=== PATIENT | female | born 1950 | race Caucasian/White ===

== ENCOUNTER → 2020-06-07 12:28 | Outpatient (CLI) | payer MEDICARE, SELFPAY ==
--- NOTE | ~2020-06-07 | US_ITS ---
EXAMINATION: US renal BI DATE: 06/07/2020 13:02 INDICATION: Chronic kidney disease stage III. TECHNIQUE: Multiple ultrasound grayscale images of the kidneys were obtained. COMPARISON: None. FINDINGS: The right kidney measures 10.3 x 4.8 x 4.2 cm. The left kidney measures 10.4 x 6.0 x 5.8 cm. The kidn eys demonstrate normal parenchymal echogenicity. There is moderate right and mild left hydronephrosis . There is a cystic mass in the abdomen measuring at least 26 cm. The bladder is not well visualized. IMPRESSION: 1. Moderate right hydronephrosis and mild left hydronephrosis. 2. Cystic mass in the abdomen measuring at least 26 cm suspicious for neoplasm. CT abdomen and pelvis is recommended. I called this result to Dr. Lobo. Reviewed, dictated and finalized at location B. T MAKER
== END ==
PROVIDERS: PCP Family Medicine; Visit Provider Internal Medicine Nephrology
DX: N17.8 Other acute kidney failure (principal); N18.31 Chronic kidney disease, stage 3a; I12.9 Hypertensive chronic kidney disease with stage 1 through stage 4 chronic kidney disease, or unspecified chronic kidney disease; R93.89 Abnormal findings on diagnostic imaging of other specified body structures
CPT/HCPCS: 76775

== ENCOUNTER 2020-06-10 14:35 | Outpatient (CLI) | payer MEDICARE, SELFPAY ==
--- NOTE | ~2020-06-10 | CT_ITS ---
EXAMINATION: CT abdomen pelvis wo con DATE: 06/10/2020 15:03 INDICATION: Hydronephrosis TECHNIQUE: Computed tomography (CT) of the abdomen and pelvis was performed without intravenous contr ast. Automated exposure control and iterative reconstruction technique were employed. Exam dose: 101 9.26 mGy-cm total exam DLP. COMPARISON: 06/07/2020 renal ultrasound examination FINDINGS: There is a huge complex largely cystic mass extending from the pelvic floor posterior to th e urinary bladder into the upper abdomen, measuring up to 33.7 cm approximate maximal height, up to 1 7 cm anteroposterior and 23.6 cm maximal transverse dimension. There is an irregular soft tissue mura l nodule along the left superolateral aspect of the mass, with some additional areas of soft tissue t hickening of the wall. Differential diagnosis includes benign or very possibly malignant ovarian neop lasm. Normal heart size. No pericardial or pleural effusion. The lung bases are clear of infiltrate or cons olidation. The liver, gallbladder, bile ducts, spleen, pancreas, and adrenal glands are unremarkable. There is moderate right and mild left hydronephrosis and hydroureter, likely secondary to compression from the large previously reported mass. No renal mass lesion or urinary tract calculus is evident. The urinary bladder is unremarkable other than the compression by the pelvic mass. Normal caliber of the abdominal aorta. No intraperitoneal or retroperitoneal or pelvic adenopathy is evident. No bowel obstruction, bowel wall thickening, pneumatosis or intraperitoneal free air is evident. There is severe degenerative disc disease and approximately 3.4 mm retrolisthesis at L1-2. There is severe degenerative disc disease at L5-S1, mild to moderate degenerative disc disease at the remaining lumbar interspaces. IMPRESSION: Huge complex cystic mass extending from the pelvic floor to the upper abdomen; ovarian m alignancy must be excluded. Gynecologic consult is recommended. Bilateral hydronephrosis secondary to the large previously reported mass lesion Reviewed, dictated and finalized at Location A. Reviewed, dictated and finalized at location A. PROMENADE TILE SETTER IMPRESSION: Huge complex cystic mass extending from the pelvic floor to the up per abdomen; ovarian malignancy must be excluded. Gynecologic consult is recomm ended. Bilateral hydronephrosis secondary to the large previously reported mass lesion
== END 2020-06-10 14:36 | disposition home or self-care (01) ==
PROVIDERS: PCP Family Medicine; Visit Provider Internal Medicine Nephrology
DX: N13.30 Unspecified hydronephrosis (principal); R19.00 Intra-abdominal and pelvic swelling, mass and lump, unspecified site
CPT/HCPCS: 74176

== ENCOUNTER 2022-05-30 13:46 | Outpatient (CLI) | payer MEDICARE, SELFPAY ==
--- NOTE | ~2022-05-30 | DEXA_ITS ---
Bone Density Report Name: RAMILA LECHUGA Age: 72 Sex: Female Ethnicity: White Date of : 1950 Indication: postmenopausal; screening for osteoporosis; height loss; cancer; hysterectomy; Referring Provider: YUDY ANDERSON Study: Bone densitometry was performed. Exam Date: May 30, 2022 Accession number: [id number] Bone Density: Region BMD T-score Z-score Classification AP Spine(L1, L2, L3) 0.817 -1.8 0.4 Osteopenia Femoral Neck (Left) 0.699 -1.4 0.6 Osteopenia Total Hip (Left) 0.865 -0.6 1.0 Normal Femoral Neck (Right) 0.680 -1.5 0.4 Osteopenia Total Hip (Right) 0.842 -0.8 0.8 Normal Total Hip Mean 0.854 -0.7 0.9 Normal World Health Organization criteria for BMD impression classify patients as: Normal (T-score at or above -1.0), Osteopenia (T-score between -1.0 and -2.5), or Osteoporosis (T-score at or below -2.5). 10-year Fracture Risk(1): Major Osteoporotic Fracture 9.8% Hip Fracture 1.6% Reported Risk Factors: [place] (), Neck BMD=0.680, BMI=35.8 (1) FRAX(R) Version 3.08. Fracture probability calculated for an untreated patient. Fracture probability may be lower if the patient has received treatment. Clinical Information Provided by Patient: Has used the following medications: Vitamin D, Calcium Has the following medical conditions: Cancer, Hysterectomy, Endometrial cancer Patient maximum height was 67 Drinks caffeinated beverages Onset of menses at age 12 Impression: The patient has low bone mass, based on the Total Spine T-score. The patient has an estimated ten-year risk of hip fracture of 1.6% and an estimated ten-year risk of major fracture of 9.8%, based on the WHO FRAX algorithm. Discussion: BONE DENSITY IS LOW AT ONE OR MORE SKELETAL SITES. This patient's lowest T-score is low at one or more skeletal sites. It meets the World Health Organization's (WHO) criteria for ?low bone mass? (T-score between -1.0 and -2.5). The patient's 10-year risk of fracture as calculated by FRAX is less than the threshold where pharmacological therapy is recommended by the National Osteoporosis Foundation (NOF). However, all treatment decisions require clinical judgment and consideration of individual patient factors, including patient preferences, comorbidities, previous drug use, risk factors not captured in the FRAX model (e.g., frailty, falls, vitamin D deficiency, increased bone turnover, interval significant decline in bone density) and possible under or overestimation of fracture risk by FRAX. The patient should follow a healthful lifestyle (good nutrition with adequate calcium and vitamin D, and appropriate weight-bearing exercise). Follow-Up: Consider repeating this study in 2 to 3 years to reassess this patient's status, or sooner if there is some new clinic
== END 2022-05-30 13:47 | disposition home or self-care (01) ==
PROVIDERS: PCP Family Medicine; Visit Provider Physician Assistant
DX: Z78.0 Asymptomatic menopausal state (principal); M85.88 Other specified disorders of bone density and structure, other site; M85.852 Other specified disorders of bone density and structure, left thigh; M85.851 Other specified disorders of bone density and structure, right thigh
CPT/HCPCS: 77080

== ENCOUNTER 2025-02-16 12:37 | Outpatient (CLI) | payer MEDICARE, SELFPAY ==
--- NOTE | ~2025-02-16 | DEXA_ITS ---
Bone Density Report Name: RAMILA LECHUGA Age: 75 Sex: Female Ethnicity: White Date of : 1950 Indication: osteopenia; height loss; cancer; hysterectomy; Referring Provider: YURIY BROWN Study: Bone densitometry was performed. Exam Date: February 16, 2025 Accession number: [id number] Bone Density: Region BMD T-score Z-score Classification AP Spine(L1, L2, L3) 0.751 -2.4 -0.1 Osteopenia Femoral Neck (Left) 0.679 -1.5 0.5 Osteopenia Total Hip (Left) 0.879 -0.5 1.3 Normal Femoral Neck (Right) 0.690 -1.4 0.7 Osteopenia Total Hip (Right) 0.853 -0.7 1.1 Normal Total Hip Mean 0.866 -0.6 1.2 Normal World Health Organization criteria for BMD impression classify patients as: Normal (T-score at or above -1.0), Osteopenia (T-score between -1.0 and -2.5), or Osteoporosis (T-score at or below -2.5). 10-year Fracture Risk(1): Major Osteoporotic Fracture 10% Hip Fracture 1.9% Reported Risk Factors: [place] (), Neck BMD=0.679, BMI=37.3 (1) FRAX(R) Version 3.08. Fracture probability calculated for an untreated patient. Fracture probability may be lower if the patient has received treatment. Previous Exams: Region Exam Age BMD T-score BMD Change BMD Change Date g/cm2 vs Baseline vs Previous AP Spine (L1-L3) 02/16/2025 75 0.751 -2.4 -0.065 (-8.0%) -0.065 (-8.0%) 05/30/2022 72 0.817 -1.8 Total Hip(Left) 02/16/2025 75 0.879 -0.5 0.014 (1.6%) 0.014 (1.6%) 05/30/2022 72 0.865 -0.6 Total Hip(Right) 02/16/2025 75 0.853 -0.7 0.010 (1.2%) 0.010 (1.2%) 05/30/2022 72 0.842 -0.8 *Denotes significance at 95% confidence level, LSC for AP Spine = 0.022 g/cm2, LSC for Total Hip = 0.027 g/cm2 Clinical Information Provided by Patient: Has used the following medications: Vitamin D, Calcium Has the following medical conditions: Cancer, Hysterectomy, Endometrial cancer Patient maximum height was 67 Drinks caffeinated beverages Onset of menses at age 12 Number of children 0 Impression: The patient has low bone mass, based on the Total Spine T-score. The patient has an estimated ten-year risk of hip fracture of 1.9% and an estimated ten-year risk of major fracture of 10%, based on the WHO FRAX algorithm. The BMD for the AP Spine (L1-L3) decreased, changing by -8.0% since the last DXA exam. Discussion: BONE DENSITY IS LOW AT ONE OR MORE SKELETAL SITES. This patient's lowest T-score is low at one or more skeletal sites. It meets the World Health Organization's (WHO) criteria for ?low bone mass? (T-score between -1.0 and -2.5). The patient's 10-year risk of fracture as calculated by FRAX is less than the threshold where pharmacological therapy is recommended by the National Osteoporosis Foundation (NOF). However, all treatment decisions require clinical judgment and consideration of individual patient factors, including patient preferences, comorbidities, previous drug use, risk factors not captured in the FRAX model (e.g., frailty, falls, vitamin D deficiency, increased bone turnover, interval significant decline in bone density) and possible under or overestimation of fracture risk by FRAX. The patient should follow a healthful lifestyle (good nutrition with adequate calcium and vitamin D, and appropriate weight-bearing exercise). Follow-Up: Consider repeating this study in 2 years to reassess this patient's status, or sooner if there is some new clinical indication. Reported by: SHAILA on 02/16/2025 1:23:00 PM. Reviewed, dictated and finalized at location A.
--- OUTSIDE RECORDS SUMMARY | 2025-02-16 13:19 | XMS_ITS | Clinical Summary ---
Author Organization [facility] Address [address] [place] [id number] Phone Care Team Providers Care Wrapper Counter Name Role Phone Seng Verdugo MD Primary Care Provider [phone] Allergies Active Allergy Reactions Criticality Noted Date Comments Manish Inhibitors 05/09/2020 Medications amLODIPine (NORVASC) 5 MG tablet Take 5 mg by mouth 1 (one) time each day 04/13/20 20 Active chlorthalidone (HYGROTON) 25 MG tablet TAKE 1/2 (ONE HALF) TABLET BY MOUTH ONCE DAILY 04/21/20 20 Active irbesartan (AVAPRO) 300 MG tablet Take 300 mg by mouth 1 (one) time each day 02/16/20 20 Active sertraline (ZOLOFT) 50 MG tablet Take 50 mg by mouth 1 (one) time each day 03/16/20 20 Active diphenoxylate-a tropine (LOMOTIL) 2.5-0.025 MG per tablet Take 1-2 tablets by mouth 10/05/19 21 Active docusate sodium (COLACE) 100 MG capsule Take 100 mg by mouth 2 times daily 08/10/19 21 Active lidocaine-prilo genie (EMLA) 2.5-2.5 % cream Apply 1 g to [facility] site and cover with clear dressing one hour prior to accessing port for chemo. 09/02/19 21 Active loperamide (IMODIUM) 2 MG capsule Take 2 mg by mouth 4 times daily as needed Active LORazepam (ATIVAN) 0.5 MG tablet Take 1 tablet twice a day for anxiety/nausea. May increase to 1 tablet Q4hr prn severe nausea. 09/03/19 21 Active Multiple Vitamins/Iron tablet Take 1 tablet by mouth Active ondansetron ODT (ZOFRAN-ODT) 8 MG dispersible tablet Allow tablet to dissolve on the tongue. Take 1 tablet every 6 to 8 hrs for nausea prevention after chemo. 09/02/19 21 Active oxyCODONE (ROXICODONE) 5 MG immediate release tablet Take 5 mg by mouth every 30 minutes as needed 08/10/19 21 Active diazePAM (VALIUM) 5 MG tablet TAKE 1 TAB BY MOUTH 1 HOUR PRIOR TO PET SCAN FOR CLAUSTROPHOBIA PREVENTION 08/02/19 21 Active ibuprofen (ADVIL) 600 MG tablet Take 600 mg by mouth every 6 (six) hours if needed for pain 08/10/19 21 Active sertraline (ZOLOFT) 100 MG tablet 07/04/19 22 Active gabapentin (NEURONTIN) 100 MG capsule TAKE 1 CAPSULE BY MOUTH EVERYDAY AT BEDTIME 12/17/19 22 Active triamcinolone (KENALOG) 0.1 % cream APPLY TO THE AFFECTED AREA(S) ON THE EXTREMEITIES/TRUNK NEEDED FOR IRRITATION/RASH 02/14/20 22 Active Active Problems Problem Noted Date Diagnosed Date Malignant neoplasm of endometrium 07/13/2020 Atrophic vaginitis 12/08/2009 Family history of malignant neoplasm of breast in first degree relative 12/08/2009 Overview (05/09/2020): Sister age 40 Chronic depression Chronic kidney disease Hypertension Mixed hyperlipidemia Unspecified disorder of nose and nasal sinuses Vitamin D deficiency Immunizations Immunization Administration Dates Next Due Fluzone High-Dose 03/18/2020 Pfizer Sars-cov-2 Vaccination 09/04/2020, 021 Pneumococcal Conjugate 13-Valent 02/06/2020,12/31 Family History Medical History Relation Comments Colon cancer Brother Diabetes mellitus Father Colon cancer Mother Stroke Mother Kidney disease Neg Hx Nephrolithiasis Neg Hx Relation Status Comments Brother Father Mother Social History Tobacco Use Types Packs/Day Years Used Date Smoking Tobacco: Never Smokeless Tobacco: Never Alcohol Use Standard Drinks/Week Comments Yes 0 (1 standard drink = 0.6 oz pur e alcohol) Comments Unknown Sex and Gender Information Value Date Recorded Sex Assigned at Not on file Legal Sex Female 10:09 AM MDT Gender Identity Not on file Sexual Orientation Not on file Last Filed Vital Signs Vital Sign Reading Time Taken Comments Blood Pressure 136/80 03/15/2022 1:17 PM CDT Pulse - - Temperature 35.8 C (96.4 F) 03/15/2022 1:17 PM CDT Respiratory Rate 18 03/15/2022 1:17 PM CDT Oxygen Saturation - - Inhaled Oxygen Concentration - - Weight 93.9 kg (207 lb) 03/15/2022 1:17 PM CDT Height 167.6 cm (5' 6) 03/15/2022 1:17 PM CDT Body Mass Index 33.41 03/15/2022 1:17 PM CDT Plan of Treatment Health Maintenance Due Date Last Done Comments Pneumococcal PPSV23/PCV13 65 + Years / Low and Medium Risk (2 of 3 - PCV20 or PCV21) 02/05/2021 02/06/2020, 2019 COVID-19 Vaccine (3 - season) 03/02/202411/2020, 08/13/2020 Influenza Vaccine (#1) 2025 Insurance MEDICARE MEDICARE [facility] Care Teams Wrapper Counter Relationship Specialty Start Date End Date Seng Verdugo MD [address] [facility] [address] [facility] [address] [place] [id number] PCP - General Internal Medicine 03/25/20
--- OUTSIDE RECORDS SUMMARY | 2025-02-16 13:19 | XMS_ITS | Continuity of Care Document ---
Author Organization [facility] Address [address] [place] [address] [address] [facility] [address] [place] [address] Phone Care Team Providers Care Foster Winder Name Role Phone [facility] Unavailable Unavail able Jerman Ha Unavailable Unavailable Advance Directives Directive Yes / No Effective Date File Name No Information Encounters Encounter Description Practice Location Reason(s) For Visit Diagnoses Date Provider Providers Copied on Encounter [facility], [address] [facility] [address], [place], [place], [id number], [place] tel:[phone] [facility] No Information [facility] [address] [facility], [address], [place], [place], [id number] , [place]. tel:[phone] Referring Provider: Adrián Carter, [address] [place] [address] [address], [place], [address]. tel:[phone] sulting Provider: Jerman Ha, [address] [place] [address], [place], [address]. tel:[phone] Family History Family Member Type Diagnosis Age At Onset No Information Payers Payer name Insurance type Covered democrat ID Authoriza tion(s) No Information Social History Type Description Quantity Date Captured Comments Sex Female Smoking Status No Information Chief Complaint And Reason For Visit No Information Reason For Referral Reason For Referral No Information History Of Present Illness Encounter Date Complaint History Of Prese nt Illness No Information Functional Status Date Functional Assessmen t No Information Instructions Date Instruction Additional Infor mation No Information Assessments Type Assessment Date No Information Patient Care Teams Name Effective Dates (start - stop) Status Members No Information
--- OUTSIDE RECORDS SUMMARY | 2025-02-16 13:19 | XMS_ITS ---
Author Organization [facility] Address [address] [facility] [place] [address] Care Team Providers Care Professor Sculpture Name Role Phone Seng Verdugo MD Primary Care Provider [phone] Active Problems Problem Noted Date Diagnosed Date Chronic depression 08/23/2020 Chronic kidney disease 08/23/2020 Hypertension 08/23/2020 Mixed hyperlipidemia 08/23/2020 Unspecified disorder of nose and nasal sinuses 0 08/23/2020 Vitamin D deficiency 08/23/2020 Malignant neoplasm of endometrium 07/13/2020 Cancer Staging:Pathologic stage from 08/17/2020:FIGO Stage IA(pT1a, cN0, cM0) - Signed by Holland Quinones MD on 08/17/2020 FH: breast cancer in first degree relative 12/08 Overview (12/08/2009): Sister age 40 Atrophic vaginitis 12/08/2009 Current Treatment and Therapy Plans ENDOMETRIAL ADJ (CISPLATIN + RT Q28 days --> CARBOPLATIN + PACLITAXEL Q21 DAYS) * Plan Start Date:08/24/2020 Plan Provider:Jagdish Pollard MD Linked Problems Malignant neoplasm of endome trium (HCC) Treatment Medications CARBOplatin (Paraplatin) Inf usion (AUC Dosing)CISplatin (Platinol) InfusionPACLitaxel (Taxol) in 500 mL infusion PORT MAINTENANCE THERAPY PLAN* Plan Start Date:01/26/2025 Plan Provider:Jono Ward MD Linked Problems Malignant neoplasm of endome trium (HCC) Treatment Medications No medications scheduled. Past Treatment and Therapy Plans ONCOLOGY TREATMENT Plan Name Start Date Discontinue Date Treatment Medications Discontinue Reason Plan Provider Cycles ENDOMETRIAL ADJ (CISPLATIN + RT Q28 days --> CARBOPLATIN + PACLITAXEL Q21 DAYS) 12/22/19 21 12/20/2020 CARBOplatin (Paraplatin) Infusion (AUC Dosing)CISplatin (Platinol) InfusionPACLitaxel (Taxol) in 500 mL infusion Future Plan Deleted Jagdish Pollard MD Treatment not started THERAPY PLAN Plan Name Start Date Discontinue Date Treatment Medications Discontinue Reason Plan Provider PORT MAINTENANCE THERAPY PLAN 10/26/2023 01/23/2025 No medications scheduled. Therapy Complete Jono Ward MD PORT MAINTENANCE THERAPY PLAN 07/11/2022 10/25/2023 No medications scheduled. Therapy Complete Jono Ward MD HYDRATION ORDERS 12/02/2020 01/03/2022 No medicati ons scheduled. Therapy Complete Jagdish Pollard MD Radiation Treatments * Course C1 - Pelvis 09/07/2020 - 10/14/2020 Treatment Period Energy Fraction Dose Fractions Total Dose Plans Planned Pelvis Lim # 10/13/2020 - 10/14/2020 540 cGy Pelvis Blacksmith Supervisor # 09/09/2020 - 10/14/2020 4,500 cGy Reference Points Delivered Resolved Problems Problem Noted Date Diagnosed Date Resolved Date Diarrhea 02/27/2024 03/26/2024
--- OUTSIDE RECORDS SUMMARY | 2025-02-16 13:19 | XMS_ITS | Clinical Summary ---
Author Organization [employer] Address [address] [place] [address] Care Team Providers Care Civil Preparedness Training Officer Name Role Phone Seng Verdugo MD Primary Care Provider Source Comments [employer],non-owned Affiliates and Associated Physician Practices is amultiple site organization consisting of ambulatory clinics and hospital sitesin [place], [place], [place] and [place]. This disclosure is being madepursuant to the Care Everywhere program and may not contain all information available regarding this patient. Last updated 18.[employer] Allergies No known active allergies Medications * Be aware that medications may not be up to date on this document. Alwaysverify current medications with the patient. irbesartan (AVAPRO) 300 MG tablet Take 1 (one) tablet by mouth once daily as needed Active Fexofenadine HCl (BROOKE ALLERGY PO) Take 1 tablet by mouth once daily Active multiple vitamins with iron tablet tablet Take 1 (one) tablet by mouth daily with food Active Multiple Vitamins-Minera ls (OCUVITE PO) Take 1 tablet by mouth once daily Active BEE POLLEN-PROPOLIS -ROYALJELLY PO Take 1 tablet by mouth once daily Active sertraline (ZOLOFT) 100 MG tablet Take 1 (one) tablet by mouth every morning 04/05/2021 Active minoxidil (Loniten) 2.5 MG tablet Take 1 (one) tablet by mouth once daily 1/2 of tablet every other day 02/20/2022 Active loratadine (Claritin) 10 MG tablet Take 1 (one) tablet by mouth once daily Active triamcinolone acetonide (Kenalog) 0.1 % cream APPLY TO THE AFFECTED AREA(S) ON THE EXTREMEITIES/ TRUNK NEEDED FOR IRRITATION/RA SH 02/13/2022 Active Other Take by mouth once daily VIVISCAL for hair growth 2 tabs per day. Active BinaxNOW COVID-19 Ag Home Test KIT as directed 04/05/2022 Act radha diphenoxylate-a tropine (Lomotil) 2.5-0.025 MG tabletIndicatio ns:Endometrial cancer (HCC) TAKE 1 TABLET BY MOUTH FOUR TIMES A DAY NEEDED FOR DIARRHEA 120 tablet 3 01/12/2025 Active Active Problems Problem Noted Date Diagnosed [...] (12/08/2009): Sister age 40 Atrophic vaginitis 12/08/2009 Resolved Problems Problem Noted Date Diagnosed Date Resolved Date Diarrhea 02/27/2024 03/26/2024 Encounters Date Type Department Care Team Description 01/26/2025 12:49 PM CDT - 01/26/2025 11:59 PM CDT Hospital Encounter [facility] [address] [facility] [address] [place] [address] Seng Verdugo MD Discharge Disposition: Home or Self Care 01/26/2025 Travel 01/10/2025 Refill [facility] [address] [facility] [address] [place] [id number] Seng Palomo MD Refill Request from Last 3 Months Immunizations Immunization Administration Dates Next Due Covid Pfizer primary monoval ent 12+ yr 0.3mL Purple cap 09/04/2020,08/13/2020 Family History Medical History Relation Name Comments Cancer - Breast Sister Relation Name Status Comments Sister Social History Tobacco Use Types Packs/Day Years Used Date Smoking Tobacco: Never Passive Smoke Exposure: Yes Smokeless Tobacco: Never Alcohol Use Standard Drinks/Week Comments Yes 0 (1 standard drink = 0.6 oz pur e alcohol) occasional wine AUDIT-C Answer Date Recorded Q1: How often do you have a drink containing alc ohol? 2-4 times a month 06/30/2020 Q2: How many drinks containi ng alcohol do you have on a typical day when you are drinking? 1 or 2 06/30/2020 Frequency of Binge Drinking Not on file 06/03 PHQ-2 Answer Date Recorded Patient Health Questionnaire-2 Score 0 01/26/2025 Comments No Sex and Gender Information Value Date Recorded Sex Assigned at Not on file Legal Sex Female 6:56 AM MERCHANT PATROLLER Gender Identity Not on file Sexual Orientation Not on file Last Filed Vital Signs Vital Sign Reading Time Taken Comments Blood Pressure 116/78 01/26/2025 1:12 PM CDT Pulse 67 01/26/2025 1:12 PM CDT Temperature 36.4 C (97.5 F) 01/26/2025 1:12 PM CDT Respiratory Rate 16 01/26/2025 1:12 PM CDT Oxygen Saturation 98% 07/29/2024 1:23 PM MERCHANT PATROLLER Inhaled Oxygen Concentration - - Weight 97.3 kg (214 lb 9.6 oz) 08/27/2024 10:10 AM MERCHANT PATROLLER Height 170.2 cm (5' 7) 08/27/2024 10:10 AM MERCHANT PATROLLER Body Mass Index 33.61 08/27/2024 10:10 AM MERCHANT PATROLLER Plan of Treatment Upcoming Encounters Date Type Department Care Team (Late st Contact Info) Description 02/25/2025 11:00 AM CDT Office Visit [facility] [address] [facility] [address] [place] [address] Marisol Mehta, BEAM SAW OPERATOR-RAKING MACHINE OPERATOR [address] [facility] [address] [place] [address] 04/27/2025 12:30 PM CDT Appointment [facility] [address] [facility] [address] [place] [address] Seng Verdugo MD [address] [place] [address] Health Maintenance Due Date Last Done Comments BONE DENSITY TESTING 1950 COLOGUARD (AGES 45-75) - COLON CA SCREENING 1950 COLON MONITORING 1950 COLONOSCOPY - COLON CA SCREENING 1950 CT COLONOGRAPHY - COLON CA SCREENING 1950 Colorectal Cancer Screening 1950 FIT - COLON CA SCREENING 1950 FLEX SIG - COLON CA SCREENING 1950 LIPID TESTING 1950 MEDICARE AWV 12 MONTHS 1950 HEPATITIS C SCREENING 01/11/1968 DTAP/TDAP/TD VACCINES (1 - Tdap) 1969 PNEUMOCOCCAL VACCINE 50+ (1 of 1 - PCV) 01/16/2000 ZOSTER VACCINE (1 of 2) 01/16/2000 COVID-19 VACCINE (6 - season) 2024 04/10/2022, 11/23/2021, 04/09/2021, Additional history exists Respiratory Syncytial Virus (RSV) Vaccine Pt: or over 60 yrs (1 - 1-dose 75+ series) 2025 INFLUENZA VACCINE (#1) 2025 04/10/2022, 2020 MAMMOGRAM 05/16/2026 05/16/2024, 05/02, 05/16/2024, Additional history exists SCREENING FOR DIABETES 07/29/2027 , 01/25/2024, 07/26/2023, Additional history exists DEPRESSION SCREENING Completed 07/29/2024, 07/26/2023, 04/20/2023, Additional history exists HEPATITIS B VACCINE Aged Out No longe r eligible based on patient's age to complete this topic HIB VACCINE Aged Out No longer eligi ble based on patient's age to complete this topic HPV VACCINE Aged Out No longer eligi ble based on patient's age to complete this topic MENINGOCOCCAL (Group B) VACCINE SHARED DECISION-MAKING Aged Out No longer eligible based on patient's age to complete this topic MENINGOCOCCAL GROUPS A/C/Y/W VACCINE Aged Out No longer eligible based on patient's age to complete this topic Medical Devices Implanted Type Area Senior Electrical Engineer Device Identifier Shelf Expiration Date Model / Serial / Lot Mri Implantable Port X-Port Isp Implanted:Qty: 1 on 08/10/2020 by Jagdish Pollard MD at [facility] Left: Chest [employer] 01/29/2023 [id number] / / [id number] Description:ak Procedures Procedure Name Priority Date/Time Associated Diagnosis Comments CANCER ANTIGEN (CA)125 BLOOD WEI 01/26/2025 1:09 PM CDT Malignant neoplasm of endometrium (HCC) COMPREHENSIVE METABOLIC PANEL WEI 07/29/2024 1:14 PM MERCHANT PATROLLER Malignant neoplasm of endometrium MAMMOGRAM Routine 05/16/2024 9:32 AM MERCHANT PATROLLER from Last 3 Months or Most Recently Relevant to Health Maintenance Results * CANCER ANTIGEN (CA)125 BLOOD (01/26/2025 1:09 PM CDT) CA 125 25.4 Female: 0-35 U/mL U/mL 01/26/2025 1:44 PM CDT [facility] Blood BLOOD SPECIMEN / Unknown Venipuncture / Unknown 01/26/2025 1:09 PM CDT 01/26/2025 1:09 PM CDT [facility] - 01/26/2025 1:44 PM CDT Backlift chemiluminescent microparticle immunoassay (CMIA) Values obtained with different assay methods or kits cannot be used interchangeably. Results cannot be interpreted as absolute evidence of the presence or absence of malignant disease. us Jono Ward MD LAB - CHEMISTRY ORDERABLES Fin al Result [facility] [address] [place] [address] * (ABNORMAL) COMPREHENSIVE METABOLIC PANEL (07/29/2024 1:14 PM MERCHANT PATROLLER) Glucose 120(H) 70 - 99 mg/dL 07/29/2024 1:47 PM MERCHANT PATROLLER [facility] Sodium 135(L) 136 - 145 mmol/L 07/29/2024 1:[address] [facility] Potassium 4.2 3.5 - 5.1 mmol/L 07/29/2024 1:[address] [facility] Chloride 103 98 - 107 mmol/L 07/29/2024 1:[address] [facility] CO2 25 22 - 29 mmol/L 07/29/2024 1:[address] [facility] Calcium 8.9 8.4 - 10.4 mg/dL 07/29/2024 1:[address] [facility] Anion Gap 7 6 - 16 mmol/L 07/29/2024 1:[address] [facility] BUN 24 7 - 26 mg/dL 07/29/2024 1:[address] [facility] Creatinine 1.12(H) 0.57 - 1.11 mg/dL 07/29/2024 1:[address] [facility] Alkaline Phosphatase 71 40 - 150 U/L 07/29/2024 1:[address] [facility] ALT 13 0 - 55 U/L 07/29/2024 1:[address] [facility] AST 17 5 - 34 U/L 07/29/2024 1:[address] [facility] Protein Total 7.0 6.4 - 8.3 gm/dL 07/29/2024 1:[address] [facility] Albumin 4.0 3.4 - 5.0 gm/dL 07/29/2024 1:[address] [facility] Bilirubin Total 0.7 0.2 - 1.2 mg/dL 07/29/2024 1:[address] [facility] eGFR by CKD-EPI 52(L) >=90 mL/min/1.7 3 m2 07/29/2024 1:[address] [facility] Blood BLOOD SPECIMEN / Unknown Venipuncture / Unknown 07/29/2024 1:14 PM MERCHANT PATROLLER 07/29/2024 1:24 PM [facility] us Jono Ward MD LAB - CHEMISTRY ORDERABLES Fin al Result [facility] [address] [place] [address] * MAMMOGRAM (05/16/2024 9:32 AM MERCHANT PATROLLER) Anatomical Region Laterality Modality Other us Historical Provider MD SCANNING ONLY Final Res ult from Last 3 Months or Most Recently Relevant to Health Maintenance Insurance [facility] MEDICARE [facility] Care Teams Civil Preparedness Training Officer Relationship Specialty Start Date End Date Seng Verdugo MD [address] [place] [address] PCP - General 06/22/20
--- OUTSIDE RECORDS SUMMARY | 2025-02-16 13:19 | XMS_ITS | Clinical Summary ---
Author Organization [facility] Address [address] [place] [address] Care Team Providers Care Emergency Medicine Physician Assistant Name Role Phone Seng Verdugo MD Primary Care Provider Allergies No known active allergies Medications triamcinolone (KENALOG) 0.1 % cream Apply topically 2 (two) times a day as needed for irritation (Rash) extremities and trunk 60 g 1 3 Active minoxidiL (LONITEN) 2.5 mg tabletIndicatio ns:Androgenetic alopecia TAKE 1/2 TABLET BY MOUTH DAILY 45 tablet 1 5 Active Active Problems No known active problems Encounters Date Type Department Care Team Description 12/16/2024 11:40 AM CDT Office Visit [facility] [address] [place] [address] [place] [phone] María Rolon MD Androgenetic alopecia (Primary Dx) from Last 3 Months Social History Tobacco Use Types Packs/Day Years Used Date Smoking Tobacco: Never Passive Smoke Exposure: Never Smokeless Tobacco: Never Tobacco Cessation:Counseling Given: No Comments Unknown Sex and Gender Information Value Date Recorded Sex Assigned at Not on file Legal Sex Female 7:54 PM DOUGHNUT GLAZIER Gender Identity Not on file Sexual Orientation Not on file Obstetrics History Last Filed Vital Signs Vital Sign Reading Time Taken Comments Blood Pressure - - Pulse - - Temperature 36.5 C (97.7 F) 03/09/2020 11:29 AM CDT Respiratory Rate - - Oxygen Saturation - - Inhaled Oxygen Concentration - - Weight - - Height - - Body Mass Index - - Plan of Treatment Health Maintenance Due Date Last Done Comments Colon Cancer Screening-Colonoscopy 1950 Depression Screening 1950 Fall Risk Assessment 1950 Hepatitis C Screening 1950 Osteoporosis Screening-Bone Density Scan 1950 Hepatitis B Screening 01/16/1968 Zoster Vaccine (2 of 3) 10/02/2012 08/07/2012 Well Visit 65+ 2015 Covid-19 Vaccine (3 - 2023-2 5 season) 2024 09/04/2020, 08/13/2020 Influenza Vaccine (#1) 2025 DTaP/Tdap/Td Vaccine (2 - Td or Tdap) 08/12/2025 08/12/2015 Pneumococcal vaccine 65+ Completed 020, 01/22/2020, 08/14/2015 Breast Cancer Screening-Mammogram Discontinued 05/16/2024, 05/15/2023, 04/05/2022, Additional history exists Procedures Procedure Name Priority Date/Time Associated Diagnosis Comments SCREENING MAMMOGRAM BILATERAL W TY Schedule Routine, Read Routine (OP Routine) 05/16/2024 1:17 PM DOUGHNUT GLAZIER Screening mammogram, encounter for from Last 3 Months or Most Recently Relevant to Health Maintenance Results * Screening Mammogram Bilateral W Ty (05/16/2024 1:17 PM DOUGHNUT GLAZIER) Anatomical Region Laterality Modality Breast Bilateral Mammography Narrative 05/19/2024 2:09 PM DOUGHNUT GLAZIER Mammogram Technique: Bilateral Digital Breast Tomosynthesis, Bilateral C-view 2D Screening mammogram. Views obtained: bilateral craniocaudal and bilateral mediolateral oblique. Computer Aided Detection was performed. Mammogram Findings: The present examination has been compared to prior imaging studies performed at [facility] on 03/10/2021, 04/05/2022 and 05/15/2023. There are scattered areas of fibroglandular density. There is no suspicious abnormality in either breast. Impression: There is no mammographic evidence of malignancy. Annual screening mammography is recommended. OVERALL FINAL ASSESSMENT: BI-RADS CATEGORY 1: Negative. Procedure Note Thalia Nieves MD - 05/19/2024 Mammogram Technique: Bilateral Digital Breast Tomosynthesis, Bilateral C-view 2D Screening mammogram. Views obtained: bilateral craniocaudal and bilateral mediolateral oblique. Computer Aided Detection was performed. Mammogram Findings: The present examination has been compared to prior imaging studies performed at [facility] on 03/10/2021, 04/05/2022 and 05/15/2023. There are scattered areas of fibroglandular density. There is no suspicious abnormality in either breast. Impression: There is no mammographic evidence of malignancy. Annual screening mammography is recommended. OVERALL FINAL ASSESSMENT: BI-RADS CATEGORY 1: Negative. us Self Screening Mammogram IMG MAMMO PROCEDURES Fi nal Result from Last 3 Months or Most Recently Relevant to Health Maintenance Insurance MEDICARE [facility] MEDICARE [facility] MEDICARE [employer]UE [employer] MEDICARE SUPPLEMENT Care Teams Emergency Medicine Physician Assistant Relationship Specialty Start Date End Date Seng Verdugo MD [address] [facility] [address] [place] [address] PCP - General Family Medicine 01/21/20
== END 2025-02-16 12:38 | disposition home or self-care (01) ==
LOC: ANHIMG 12:38
PROVIDERS: PCP Family Medicine; Visit Provider Family Medicine
DX: Z78.0 Asymptomatic menopausal state (principal); M85.88 Other specified disorders of bone density and structure, other site; M85.852 Other specified disorders of bone density and structure, left thigh; M85.851 Other specified disorders of bone density and structure, right thigh
CPT/HCPCS: 77080